=== PATIENT | female | born 1975 | race Caucasian/White ===

== ENCOUNTER 2018-11-25 07:13 | Emergency (ER) | payer SELFPAY ==
[~2018-11-25] VITALS: Ht 167.6 cm; Wt 100.0 kg
[2018-11-25 07:15] VITALS: Ht 167.6 cm; Wt 100.0 kg
[2018-11-25] MEDS ORDERED: SODIUM CHLORIDE 0.9% 1L BAG IV* STA (07:29)
[2018-11-25] MEDS ORDERED: ALBUTEROL 0.5% (NEB) 2.5 MG/0.5 ML AMP INH STA (07:30)
[2018-11-25] MEDS ORDERED: IPRATROPIUM (NEB) 0.5 MG/2.5 ML AMP INH STA (07:30)
[2018-11-25] MEDS ORDERED: METHYLPREDNISOLONE 125 MG INJ IV STA (07:30)
[2018-11-25] MEDS ORDERED: IBUPROFEN 600 MG TAB PO ONE (07:30)
[2018-11-25] MEDS ORDERED: CEFTRIAXONE 1 GM/50 ML (PMX) 50 ML IVPB ONE (07:30)
[2018-11-25] MEDS ORDERED: AMLO-147 PO (07:35)
[2018-11-25] MEDS ORDERED: MONT10TA24 PO (07:36)
--- NOTE | 2018-11-25 09:31 | ERD ---
ER Documentation Chief Complaint Chief Complaint SOB x last night HX asthma HPI This is a 43-year-old woman complaining of nasal congestion, rhinorrhea, body aches, sore throat, wheezing times about 1 week. She states she developed a fever yesterday. She does have asthma and has been wheezing and states she ran out of her albuterol. She denies abdominal pain, no vomiting or diarrhea, no chest pain, no calf or leg swelling. ROS All systems reviewed and are negative except as per history of present illness. Medications Home Meds Active Scripts Ibuprofen* (Motrin*) 600 Mg Tab, 600 MG PO Q8 PRN for PAIN AND/OR INFLAMMATION, #30 TAB Prov:CLAY CASTELLANO MD 11/25/18 Albuterol Sulfate* (Proair HFA*) 8.5 Gm Hfa.aer.ad, 2 PUFF INH Q4, #1 INHALER Prov:CLAY CASTELLANO MD 11/25/18 Azithromycin* (Zithromax*) 250 Mg Tablet, 250 MG PO .ZPACK DIRECTED, #6 TAB TAKE 500 MG (2 TABS) THE FIRST DAY THEN 250 MG (1 TAB) DAYS 2-5 Prov:CLAY CASTELLANO MD 11/25/18 Prednisone* (Prednisone*) 20 Mg Tab, 40 MG PO DAILY for 4 Days, TAB Prov:CLAY CASTELLANO MD 11/25/18 Reported Medications Montelukast Sodium* (Montelukast Sodium*) 10 Mg Tablet, 10 MG PO QHS, #30 TAB 11/25/18 Amlodipine Besylate* (Amlodipine Besylate*) 10 Mg Tablet, 10 MG PO DAILY, #30 TAB 11/25/18 Allergies Allergies: Coded Allergies: Sulfa (Sulfonamide Antibiotics) (Unverified Allergy, Intermediate, 11/25/18) PMhx/Soc Asthma History of Surgery: No Anesthesia Reaction: No Hx Neurological Disorder: No Hx Respiratory Disorders: Yes (ASTHMA ) Hx Cardiac Disorders: Yes (HTN) Hx Psychiatric Problems: No Hx Miscellaneous Medical Probl: No Hx Alcohol Use: No Hx Substance Use: No Hx Tobacco Use: No Smoking Status: Never smoker FmHx Family History: No diabetes Physical Exam Vitals Vital Signs Date Temp Pulse Resp B/P (MAP) Pulse Ox O2 O2 Flow FiO2 Time Delivery Rate 11/25/18 98.9 98 18 126/79 98 Room Air 10:09 (95) 11/25/18 104 18 128/76 98 Nasal 09:30 (93) Cannula 11/25/18 121 18 148/85 98 Nasal 08:15 (106) Cannula 11/25/18 Nasal 3.0 07:55 Cannula 11/25/18 Nasal 2 07:43 Cannula 11/25/18 118 24 96 Nasal 3.0 07:39 Cannula 11/25/18 101.8 07:37 11/25/18 101.3 143 24 144/81 97 07:15 (102) Physical Exam GENERAL: Well-developed, well-nourished, dyspneic and febrile HEENT: Moist mucous membranes, positive nasal congestion, pink conjunctiva, no cervical spine tenderness or step-off deformities, extraocular movements intact without pain. No submandibular induration, and no pharyngeal erythema NEURO: Alert and oriented 3, cranial nerves II through XII intact bilaterally, pupils equal round reactive to light, no focal deficits or facial asymmetry, s ensation intact distally Strength 5/5 in upper and lower extremities bilaterally CARDIAC: Cardiac and regular, no murmurs rubs or gallops LUNGS: Diffuse wheezes bilaterally ABDOMEN: Soft nontender, no guarding, no rigidity, no rebound, no psoas sign no obturator sign. SKIN: Warm and dry to touch, no abrasions, contusions, or hematomas, no lacerations, no ecchymosis, no target lesions, and without ulcers EXTREMITIES: No clubbing cyanosis or edema, calves are bilaterally symmetrical, no Homans sign, no popliteal cord sign. Distal pulses equal and bilateral PSYCH: Normal affect without agitation or irritability Result Diagram: 11/25/18 0739 11/25/18 0731 Results 24 hrs Laboratory Tests Test 11/25/18 07:28 11/25/18 07:31 11/25/18 07:39 11/25/18 08:44 POC Venous 2.1 mmol/L Lactate Prothrombin Time 13.2 Sec Prothrombin Time 1.0 Ratio INR 0.99 International Normalized Ratio Activated 32.0 Sec Partial Thrombop last Time Sodium Level 141 mmol/L Potassium Level 4.0 mmol/L Chloride Level 105 mmol/L Carbon Dioxide 21 mmol/L Level Anion Gap 15 Blood Urea 9 mg/dl Nitrogen Creatinine 0.69 mg/dl Est Glomerular > 60 mL/min Filtrat Rate mL/min Glucose Level 123 mg/dl Calcium Level 9.8 mg/dl Total Bilirubin 0.4 mg/dl Direct Bilirubin 0.00 mg/dl Indirect 0.4 mg/dl Bilirubin Aspartate Amino 20 IU/L Transf (AST/SGOT ) Alanine < 6 IU/L Aminotransferase (ALT/SGPT) Alkaline 73 IU/L Phosphatase Troponin I < 0.012 ng/ml Total Protein 8.2 g/dl Albumin 4.6 g/dl Globulin 3.60 g/dl Albumin/Globulin 1.27 Ratio Lipase 61 U/L White Blood 11.6 10^3/ul Count Red Blood Count 3.89 10^6/ul Hemoglobin 11.9 g/dl Hematocrit 36.0 % Mean Corpuscular 92.5 fl Volume Mean Corpuscular 30.6 pg Hemoglobin Mean Corpuscular 33.1 g/dl Hemoglobin Julieth nt Red Cell 13.1 % Distribution Width Platelet Count 278 10^3/UL Mean Platelet 9.5 fl Volume Immature 0.400 % Granulocytes % Neutrophils % 84.7 % Lymphocytes % 8.4 % Monocytes % 3.9 % Eosinophils % 2.3 % Basophils % 0.3 % Nucleated Red 0.0 /100WBC Blood Cells % Immature 0.050 10^3/ul Granulocytes # Neutrophils # 9.8 10^3/ul Lymphocytes # 1.0 10^3/ul Monocytes # 0.5 10^3/ul Eosinophils # 0.3 10^3/ul Basophils # 0.0 10^3/ul Nucleated Red 0.0 10^3/ul Blood Cells # Urine Color YELLOW Urine Clarity CLEAR Urine pH 5.0 Urine Specific 1.023 [place] Urine Ketones [place]ACE mg/dL Urine Nitrite NEGATIVE mg/dL Urine Bilirubin NEGATIVE mg/dL Urine NEGATIVE mg/dL Urobilinogen Urine Leukocyte NEGATIVE Bhaskar/ul Esterase Urine Hemoglobin NEGATIVE mg/dL Urine Glucose NEGATIVE mg/dL Urine Total NEGATIVE mg/dl Protein Test 11/25/18 08:45 11/25/18 09:30 Urine NEGATIVE Test POC Venous 2.6 mmol/L Lactate Current Medications Medications Dose Sig/Sanjuanita Start Time Status Last (Trade) Ordered Route PRN Stop Time Admin Dose Reason Admin Sodium 3,000 ml BOLUS OVER 2 11/25/18 DC 11/25/18 Chloride HOURS STAT 07:29 07:34 (NS) IV* 11/25/18 07:31 Ibuprofen 600 mg ONCE ONCE 11/25/18 DC 11/25/18 (Motrin) PO 07:30 07:37 11/25/18 07:31 Ceftriaxone 50 ml @ ONCE ONCE 11/25/18 DC 11/25/18 Sodium 100 mls/hr IVPB 07:30 07:50 11/25/18 07:59 Albuterol 10 mg ONCE STAT 11/25/18 DC 11/25/18 (Proventil INH 07:30 07:39 0.5% (Neb)) 11/25/18 07:32 Ipratropium 1 mg ONCE STAT 11/25/18 DC 11/25/18 [place] INH 07:30 07:39 (Atrovent 11/25/18 07:32 0.02% (Neb)) 125 mg ONCE STAT 11/25/18 DC 11/25/18 Methylprednis IV 07:30 07:37 olone Sodium 11/25/18 07:32 Succinate (Solu-Medrol) Procedures/MDM IV line was established patient was placed on registered nurse cardiac telemetry rhythm strip revealed a sinus tachycardia at 120 bpm with upright P and T waves. Patient was febrile, blood and urine cultures have been ordered results are pending I will follow-up. I administered 3 L normal saline IV, ibuprofen 600 mg p.o., and ceftriaxone 1 g IV. Influenza AB swabs were negative EKG performed, read by me revealed a sinus tachycardia at 127 bpm, normal axis, narrow QRS complex, no concerning ST elevations or depressions noted. One AP view of the chest performed, read by me reveals no acute infiltrates, normal mediastinum, sharp costophrenic and cardiac borders, no air under the diaphragm. Otherwise unremarkable chest x-ray. I administered albuterol 10 mg via nebulizer, ipratropium 1 mg via nebulizer, and methylprednisolone 125 mg IV x1 CBC and electrolytes were normal, liver function tests were normal, troponin was negative, test negative, urinalysis negative for infection. Initial lactic acid was 2.1, repeat 2.6. I do suspect sepsis. Patient felt much better after IV fluids and bronchodilator therapy, she defervesced and her tachycardia resolved, I did repeat her pulmonary exam at the bedside after above therapy and she had minimal wheezing with good inspiratory effort. I did recommend inpatient therapy for asthma and sepsis and I also recommended continued inpatient bronchodilator therapy. She stated she felt better and wanted to go home and refused admission. She did not want any int ervention and despite my education regarding the seriousness of sepsis and continued wheezing she refused admission. I did invite her back to the ER if she changes her mind or if she has any worsening of her symptoms. Patient signed out AGAINST MEDICAL ADVICE. Differential diagnoses considered, included but not limited to acute coronary syndrome, pulmonary embolism, aortic dissection, abdominal aortic aneurysm, sepsis, stroke, meningitis, encephalitis, pneumonia, appendicitis, cholecystitis, bowel obstruction, pyelonephritis, nephrolithiasis, cystitis, as well as metabolic, hematologic, and electrolyte abnormalities. As well as abscess, cellulitis, fractures, and dislocations. Departure Diagnosis: Primary Impression: Sepsis Sepsis type: sepsis due to unspecified organism Qualified Codes: A41.9 - Sepsis, unspecified organism Additional Impression: Asthma Asthma severity: moderate Asthma persistence: persistent Asthma complication type: with acute exacerbation Qualified Codes: J45.41 - Moderate persistent asthma with (acute) exacerbation Condition: CLAY Lea MD Nov 25, 2018 09:30
[2018-11-25] MEDS ORDERED: ALBU8.5H8 INH (09:39)
[2018-11-25] MEDS ORDERED: IBUP-1542 PO (09:39)
[2018-11-25] MEDS ORDERED: AZIT250T PO (09:39)
[2018-11-25] MEDS ORDERED: PRED20TA PO (09:39)
[2018-11-25 10:09] VITALS: BP 126/79; PULSE 98; RESP 18
== END 2018-11-25 10:09 | disposition left against medical advice (07) ==
LOC: E/R 07:13
DX: A41.9 Sepsis, unspecified organism (principal); J45.41 Moderate persistent asthma with (acute) exacerbation; I10 Essential (primary) hypertension
CPT/HCPCS: 36415; 71045; 80053; 81003; 83605; 83690; 84484; 84703; 85025; 85610; 85730; 87040; 87086; 87400; 93005; 94644; 96361; 96365; 96375; 99285; J0696; J2930; J7030

== ENCOUNTER 2019-02-14 13:37 | Emergency (ER) | payer SELFPAY ==
[~2019-02-14] VITALS: Ht 170.2 cm; Wt 100.0 kg
[~2019-02-14 13:37] MED LIST: ALBU8.5H8 INH; AMLO-147 PO; AZIT250T PO; IBUP-1542 PO; MONT10TA24 PO; PRED20TA PO
[2019-02-14 13:43] VITALS: BP 158/91; PULSE 84; RESP 18; Ht 170.2 cm; Wt 100.0 kg
[2019-02-14] MEDS ORDERED: ACETAMINOPHEN 325 MG TAB PO STA (14:04)
--- NOTE | 2019-02-14 14:13 | ERD ---
ER Documentation Chief Complaint Chief Complaint VAGINAL BLEEDING WITH PELVIC PAIN X 5 DAYS--6 WKS PREG HPI This is a 43-year-old female, -0-2-1 who presents at roughly 6 weeks with complaints of vaginal bleeding and lower pelvic cramping. Patient states that the vaginal spotting started 1 week ago but the cramping has gotten worse over the past day. Patient states that she passed one large clot 4 days ago but is no longer passing any clots. Patient states that she is currently spotting and going through maybe 1-2 pads per day. Last menstrual period was 19. Patient has not been seen by OB specialist or had any blood work ultrasound performed. Denies fevers, chills, nausea, vomiting, diarrhea, consti pation, dysuria, hematuria and all other symptoms. ROS All systems reviewed and are negative except as per history of present illness. Medications Home Meds Active Scripts Ibuprofen* (Motrin*) 600 Mg Tab, 600 MG PO Q8 PRN for PAIN AND/OR INFLAMMATION, #30 TAB Prov:CLAY CASTELLANO MD 11/25/18 Albuterol Sulfate* (Proair HFA*) 8.5 Gm Hfa.aer.ad, 2 PUFF INH Q4, #1 INHALER Prov:CLAY CASTELLANO MD 11/25/18 Azithromycin* (Zithromax*) 250 Mg Tablet, 250 MG PO .ZPACK DIRECTED, #6 TAB TAKE 500 MG (2 TABS) THE FIRST DAY THEN 250 MG (1 TAB) DAYS 2-5 Prov:CLAY CASTELLANO MD 11/25/18 Prednisone* (Prednisone*) 20 Mg Tab, 40 MG PO DAILY for 4 Days, TAB Prov:CLAY CASTELLANO MD 11/25/18 Reported Medications Montelukast Sodium* (Montelukast Sodium*) 10 Mg Tablet, 10 MG PO QHS, #30 TAB 11/25/18 Amlodipine Besylate* (Amlodipine Besylate*) 10 Mg Tablet, 10 MG PO DAILY, #30 TAB 11/25/18 Allergies Allergies: Coded Allergies: Sulfa (Sulfonamide Antibiotics) (Unverified Allergy, Intermediate, 11/07 ) PMhx/Soc History of Surgery: No Anesthesia Reaction: No Hx Neurological Disorder: No Hx Respiratory Disorders: Yes (ASTHMA ) Hx Cardiac Disorders: Yes (HTN) Hx Psychiatric Problems: No Hx Miscellaneous Medical Probl: No Hx Alcohol Use: No Hx Substance Use: No Hx Tobacco Use: No FmHx Family History: No diabetes Physical Exam Vitals Vital Signs Date Temp Pulse Resp B/P (MAP) Pulse Ox O2 O2 Flow FiO2 Time Delivery Rate 02/14/19 37.4 15:00 02/14/19 99.3 84 18 158/91 95 13:43 (113) Physical Exam Physical Exam Vitals signs: Reviewed by me. General: Well developed, well nourished, in no acute distress. Patient is awake and alert. Head: Normocephalic, atraumatic. Eyes: Normal conjunctiva, Pupils PERRLA, EOM intact grossly ENT: Pharynx is clear, Moist mucous membranes, external ears, nose and mouth normal Neck: Supple, no masses, lymphadenopathy or JVD Respiratory: Clear to auscultation bilaterally with no wheezing, rhonchi, rales, no distress Cardiovascular: RRR, no murmurs, rubs, or gallops Abdominal: Soft, nondistended, no peritoneal signs, no rigidity, no surgical abdomen, bowel sounds present all 4 quadrants, nontender lengthy palpation all 4 quadrants, McBurney's point nontender, no rebound tenderness MSK: No edema Back: No midline tenderness. Neurologic: Alert and oriented, moving all extremities, normal speech, no focal weakness, no cerebellar signs. Normal mentation Skin: warm and dry, No rash Psych: Normal mood Result Diagram: 02/14/19 1410 02/14/19 1410 Results 24 hrs Laboratory Tests Test 02/14/19 14:10 White Blood Count 7.4 10^3/ul Red Blood Count 3.83 10^6/ul Hemoglobin 11.6 g/dl Hematocrit 35.7 % Mean Corpuscular Volume 93.2 fl Mean Corpuscular Hemoglobin 30.3 pg Mean Corpuscular Hemoglobin Concent 32.5 g/dl Red Cell Distribution Width 13.1 % Platelet Count 260 10^3/UL Mean Platelet Volume 9.2 fl Immature Granulocytes % 0.100 % Neutrophils % 45.7 % Lymphocytes % 40.2 % Monocytes % 4.9 % Eosinophils % 8.6 % Basophils % 0.5 % Nucleated Red Blood Cells % 0.0 /100WBC Immature Granulocytes # 0.010 10^3/ul Neutrophils # 3.4 10^3/ul Lymphocytes # 3.0 10^3/ul Monocytes # 0.4 10^3/ul Eosinophils # 0.6 10^3/ul Basophils # 0.0 10^3/ul Nucleated Red Blood Cells # 0.0 10^3/ul Urine Color MACK Urine Clarity CLOUDY Urine pH 5.0 Urine Specific [place] 1.028 Urine Ketones NEGATIVE mg/dL Urine Nitrite NEGATIVE mg/dL Urine Bilirubin NEGATIVE mg/dL Urine Urobilinogen NEGATIVE mg/dL Urine Leukocyte Esterase 1+ Bhaskar/ul Urine Microscopic RBC > 182 /HPF Urine Microscopic WBC > 182 /HPF Urine Squamous Epithelial Cells FEW /HPF Urine Bacteria FEW /HPF Urine Mucus MODERATE /HPF Urine Hemoglobin 3+ mg/dL Urine Glucose NEGATIVE mg/dL Urine Total Protein 2+ mg/dl Sodium Level 142 mmol/L Potassium Level 4.3 mmol/L Chloride Level 106 mmol/L Carbon Dioxide Level 28 mmol/L Anion Gap 8 Blood Urea Nitrogen 9 mg/dl Creatinine 0.75 mg/dl Est Glomerular Filtrat Rate mL/min > 60 mL/min Glucose Level 102 mg/dl Calcium Level 9.6 mg/dl Total Bilirubin 0.3 mg/dl Direct Bilirubin 0.00 mg/dl Indirect Bilirubin 0.3 mg/dl Aspartate Amino Transf (AST/SGOT) 18 IU/L Alanine Aminotransferase (ALT/SGPT) 14 IU/L Alkaline Phosphatase 58 IU/L Total Protein 7.9 g/dl Albumin 4.3 g/dl Globulin 3.60 g/dl Albumin/Globulin Ratio 1.19 Beta HCG, Quantitative 870.5 mIU/ml Current Medications Medications Dose Sig/Sanjuanita Start Time Status Last (Trade) Ordered Route PRN Stop Time Admin Dose Reason Admin 650 mg ONCE STAT 02/14/19 DC 02/14/19 Acetaminophen PO 14:04 02/14/19 15:00 (Tylenol 14:05 Tab) Procedures/MDM EKG, MONITORS, & DIAGNOSTIC IMAGING: [place] [id number] Radiology Main Line: [phone] DIAGNOSTIC IMAGING REPORT Patient: MARLEN MCKEON : 1975 Age: 43 Sex: F MR #: [id number] DOS: 02/14/19 1404 Ordering MD: RONALDO VILLAFANA PA-C Location: [facility] Room/Bed: PROCEDURE: US Obstetrical 1st Trimester CLINICAL INDICATION: Vaginal bleeding TECHNIQUE: Multiple real-time images were acquired of the patient's maternal abdomen utilizing a curved array transducer. COMPARISON: None FINDINGS: The uterus is anteverted and prominent in size measuring 12.9 cm in sagittal diameter and 9.4 x 8.0 cm in cross diameter. A 5.4 x 4.6 x 4.5 cm intramural fibroid is seen within the left anterior uterine body. The fundal endometrial cavity is mildly thickened to 1.3 cm and there is a trace of fluid within the fundal endometrial cavity. Within the central cervix, there is a cystic structure measuring 1.1 x 0.8 x 0.6 cm. This possibly represents a slightly deformed gestational sac and if so would correspond to a sac of 5 weeks 3 days based on mean sac diameter. No yolk sac or pole is identified. Neither ovary is visualized. No adnexal mass or free fluid is identified IMPRESSION: 1. Anteverted enlarged fibroid uterus. There is a trace of fluid within the fundal endometrial cavity with the endometrium measuring 1.3 cm thick. Within the central cervix there is a somewhat the regular cystic structure which possibly represents an aborting gestational sac which by mean sac diameter corresponds to end age of 5 weeks 3 days. No intrauterine yolk sac or pole is identified. Correlation with quantitative serial beta HCG may be useful. 2. Neither ovary is identified. 3. No adnexal mass or free fluid is evident. Physician Erick Date Time Electronically viewed and signed by Physician Erick on 02/14/2019 15:12 RH/ CC: RONALDO VILLAFANA PA-C [id number] LAB INTERPRETATION: CBC hemoglobin 11.6, hematocrit 35.7, no leukocytosis Chemistry shows no evidence of significant electrolyte abnormalities or renal insufficiency Liver function test shows no evidence of acute biliary or hepatic dysfunction hCG 870.5 Urinalysis is remarkable for 1+ leukocyte esterase, over 182 microscopic WBCs, over 182 microscopic RBCs O+ ER COURSE: The patient was given tylenol The medication was well tolerated and the patient reports improvement in symptoms. The patient was stable throughout ED course. I kept the patient and/or family informed of laboratory and diagnostic imaging results throughout the emergency room course. The patient was promptly evaluated and a treatment plan was devised based on H&P and other data. This plan was discussed with the patient who agreed and had no further questions or concerns prior to discharge. MEDICAL DECISION MAKING: This is a 43 year-old female, G [id number], who presents with vaginal bleeding at roughly 6 weeks . Ultrasound shows an anteverted enlarged fibroid uterus. Within the central cervix there is is a regular cystic structure which possibly represents an aborting gestational sac which by mean sac diameter corresponds to the age of 5 weeks 3 days. There is no intrauterine yolk sac or pole identified. Patient's quantitative hCG is 870.5. Ectopic not visualized. Patient is O+ and does not require any rhogam. She is hemodynamically stable. Given findings on ultrasound and patient's symptoms this is likely a spontaneous , but also could be early - this was discussed with patient.. Patient will need to repeat quantitative hCG in the next 48-72 days to show a upward trend. Advise for patient either return to the ER for repeat quantitative hCG or to follow-up with her [facility] doctor for this. Urinalysis reflects UTI. At this time there is no [facility] emergency. Advised to return to ER with any worsening symptoms. DISPOSITION PLAN: We discussed follow up with the patient's primary care doctor within 24 to 48 hours. Patient counseled regarding my diagnostic impression and care plan. Prior to discharge all questions answered. Pt agrees with treatment plan and understands strict return precautions. Precautionary instructions provided including instructions to return to the ER if not improving or for any worsening or changing symptoms or concerns. SPECIALIST FOLLOW UP RECOMMENDED: obgyn Patient has been advised to follow up with primary care in 1-2 days. Disclaimer: Inadvertent spelling and grammatical errors are likely due to EHR/dictation software use and do not reflect on the overall quality of patient care. Also, please note that the electronic time recorded on this note does not necessarily reflect the actual time of the patient encounter. Departure Diagnosis: Primary Impression: Vaginal bleeding in patient at less than 20 weeks gestation Additional Impression: UTI (urinary tract infection) in in first trimester Condition: Stable Patient Instructions: Bleeding During Early , Possible Miscarriage (Threatened ), Understanding Urinary Tract Infections (UTIs) Referrals: [facility] REFERRAL LIST Additional Instructions: You will need to return to the emergency department or be seen by OB specialist to have repeat labs and possibly repeat ultrasound in 48 to 72 hours. Patient advised to return to the ED immediately for new or worsening symptoms. Patient advised to follow up with primary care provider in the next 24-48 hours. Patient verbalized understanding and agrees with treatment plan and course of action. If patient has no primary care they may follow up with one of the community clinics listed on the following page or one of the options listed below [facility] [address] [place] [id number] or [facility] [address] [place] [address] or [facility] [address] [place] [address] RONALDO VILLAFANA PA-C Feb 14, 2019 14:13
[2019-02-14] MEDS ORDERED: CEPH-443 PO (15:29)
== END 2019-02-14 15:58 | disposition home or self-care (01) ==
LOC: FTE 13:37
DX: O20.9 Hemorrhage in early pregnancy, unspecified (principal); O23.41 Unspecified infection of urinary tract in pregnancy, first trimester; R10.2 Pelvic and perineal pain; O10.011 Pre-existing essential hypertension complicating pregnancy, first trimester; O99.511 Diseases of the respiratory system complicating pregnancy, first trimester; J45.909 Unspecified asthma, uncomplicated; Z3A.01 Less than 8 weeks gestation of pregnancy
CPT/HCPCS: 36415; 76801; 76817; 80053; 81001; 84702; 85025; 86900; 86901